=== PATIENT | female | born 1950 | race Caucasian/White ===

== ENCOUNTER 2019-03-07 04:52 | Inpatient (IN) ==
[2019-03-07] MEDS ORDERED: ONDANSETRON 4 MG/2 ML VIAL IV ONE (05:36)
[2019-03-07] MEDS ORDERED: MORPHINE 4 MG/1 ML VIAL IV STA (05:36)
[2019-03-07] MEDS ORDERED: FUROSEMIDE 40 MG/4 ML VIAL IV STA (05:36)
[2019-03-07 05:56] LABS: INR 0.9; PT Patient Result 10.2 SECS (9.6-12.2)
[2019-03-07 06:09] LABS: Basophils % 0.7 % (0.0-0.8); Eosinophils # 0.1 10*3/uL (0.0-0.87); Eosinophils % 1.5 % (0.00-10.9); Hematocrit 42.6 VOL% (35.7-47.0); Hemoglobin 12.7 GM/DL (12.0-16.0); Immature Granulocytes % 0.4 %; Immature Granulocytes Absolute 0.02 #; Lymphocytes # 0.7 10*3/uL (1.4-4.0); Lymphocytes % 13.6 % (21.3-54.2); Mean Corpuscular HGB Conc 29.8 GM/DL (32-36); Mean Corpuscular Volume 89.3 FL (87-102); Mean Platelet Volume 11.9 FL (9.6-12.0); Monocytes % 6.1 % (1.7-12.7); Neutrophils % 77.7 % (38.7-73.9); Platelet Count 138 T/CUMM (130-400); Red Blood Count 4.77 MC/CUMM (3.8-5.5); Red Cell Distribution Width 22.3 % (9.3-17.3); White Blood Count 5.4 T/CUMM (4-12)
[2019-03-07 06:12] LABS: Albumin 3.4 G/DL (3.4-5.0); Bilirubin,Total 0.8 MG/DL (0.2-1.0); Calcium 9.2 MG/DL (8.5-10.1); Osmolality,Calculated 291.6 MOS/KG (273-304); Total Protein 6.4 G/DL (6.4-8.3)
[2019-03-07] MEDS ORDERED: hydrALAZINE 20 MG/1 ML VIAL IV STA (06:32)
[2019-03-07] MEDS ORDERED: ONDANSETRON 4 MG/2 ML VIAL IV PRN (10:34)
[2019-03-07 12:22] LABS: Troponin I 0.082 NG/ML (0.00-0.045)
[2019-03-07] MEDS: LISINOPRIL 20 MG TABLET PO SCH (12:26)
[2019-03-07 15:38] LABS: Troponin I 0.085 NG/ML (0.00-0.045)
[2019-03-07] MEDS: TEMAZEPAM 15 MG CAPSULE PO PRN (21:53)
[2019-03-08 05:42] LABS: Basophils % 0.6 % (0.0-0.8); Eosinophils # 0.3 10*3/uL (0.0-0.87); Eosinophils % 8.2 % (0.00-10.9); Hematocrit 37.4 VOL% (35.7-47.0); Hemoglobin 11.2 GM/DL (12.0-16.0); Lymphocytes # 1.4 10*3/uL (1.4-4.0); Lymphocytes % 38.5 % (21.3-54.2); Mean Corpuscular HGB Conc 29.9 GM/DL (32-36); Monocytes % 11.9 % (1.7-12.7); Neutrophils % 40.8 % (38.7-73.9); Platelet Count 119 T/CUMM (130-400); Red Blood Count 4.25 MC/CUMM (3.8-5.5); Red Cell Distribution Width 22.4 % (9.3-17.3); White Blood Count 3.5 T/CUMM (4-12)
[2019-03-08 06:11] LABS: Hypochromasia 1+; Ovalocytes Slight; Platelet Estimate Decreased
[2019-03-08 06:13] LABS: Calcium 8.7 MG/DL (8.5-10.1); Osmolality,Calculated 287.7 MOS/KG (273-304); Risk Ratio 3.34; Thyroid Stimulating Hormone 2.64 uIU/ml (0.358-3.74)
[2019-03-08] MEDS: PANTOPRAZOLE 40 MG TABLET PO SCH (09:20)
[2019-03-08] MEDS: LISINOPRIL 20 MG TABLET PO SCH (09:20)
[2019-03-08] MEDS: hydrALAZINE 20 MG/1 ML VIAL IV PRN (09:20)
[2019-03-08] MEDS: POTASSIUM CHLORIDE 20 MEQ TABLET PO PRN ×5 (15:20→23:38)
[2019-03-08] MEDS ORDERED: hydroCHLOROthiazide 12.5 MG CAPSULE PO ONE (17:40)
[2019-03-08] MEDS: TEMAZEPAM 15 MG CAPSULE PO PRN (21:24)
[2019-03-09 06:13] LABS: Osmolality,Calculated 289.6 MOS/KG (273-304)
[2019-03-09 06:29] LABS: Basophils % 0.9 % (0.0-0.8); Eosinophils # 0.3 10*3/uL (0.0-0.87); Eosinophils % 7.2 % (0.00-10.9); Hematocrit 38.3 VOL% (35.7-47.0); Hemoglobin 11.5 GM/DL (12.0-16.0); Immature Granulocytes % 0.2 %; Immature Granulocytes Absolute 0.01 #; Lymphocytes # 1.4 10*3/uL (1.4-4.0); Lymphocytes % 30.3 % (21.3-54.2); Mean Corpuscular Volume 88.9 FL (87-102); Monocytes % 9.2 % (1.7-12.7); Neutrophils % 52.2 % (38.7-73.9); Red Blood Count 4.31 MC/CUMM (3.8-5.5); Red Cell Distribution Width 22.5 % (9.3-17.3); White Blood Count 4.5 T/CUMM (4-12)
[2019-03-09 06:36] LABS: Platelet Count 135 T/CUMM (130-400)
[2019-03-09 06:42] LABS: Hypochromasia 1+; Platelet Estimate Adequate
[2019-03-09] MEDS: FUROSEMIDE 40 MG/4 ML VIAL IV SCH (09:31)
[2019-03-09] MEDS: PANTOPRAZOLE 40 MG TABLET PO SCH (09:32)
[2019-03-09] MEDS: hydroCHLOROthiazide 12.5 MG CAPSULE PO SCH (09:32)
[2019-03-09] MEDS: LISINOPRIL 20 MG TABLET PO SCH (09:32)
[2019-03-09] MEDS: CARVEDILOL 6.25 MG TABLET PO SCH ×2 (12:57→16:35)
[2019-03-09] MEDS: ACETAMINOPHEN 325 MG TABLET PO PRN (22:35)
[2019-03-10] MEDS: hydrALAZINE 20 MG/1 ML VIAL IV PRN ×2 (00:45→23:58)
[2019-03-10] MEDS: FUROSEMIDE 40 MG/4 ML VIAL IV SCH (09:23)
[2019-03-10] MEDS: LISINOPRIL 20 MG TABLET PO SCH (09:24)
[2019-03-10] MEDS: CARVEDILOL 6.25 MG TABLET PO SCH ×2 (09:24→16:35)
[2019-03-10] MEDS: ACETAMINOPHEN 325 MG TABLET PO PRN (09:24)
[2019-03-10] MEDS: PANTOPRAZOLE 40 MG TABLET PO SCH (09:25)
[2019-03-10] MEDS: hydroCHLOROthiazide 12.5 MG CAPSULE PO SCH (09:25)
[2019-03-11] MEDS: FUROSEMIDE 40 MG/4 ML VIAL IV SCH (08:11)
[2019-03-11] MEDS: ACETAMINOPHEN 325 MG TABLET PO PRN (08:12)
[2019-03-11] MEDS: PANTOPRAZOLE 40 MG TABLET PO SCH (08:12)
[2019-03-11] MEDS: LISINOPRIL 20 MG TABLET PO SCH (08:12)
[2019-03-11] MEDS: CARVEDILOL 6.25 MG TABLET PO SCH (08:13)
[2019-03-11] MEDS: hydroCHLOROthiazide 12.5 MG CAPSULE PO SCH (08:13)
[2019-03-11] MEDS ORDERED: hydroCHLOROthiazide 12.5 MG CAPSULE PO ONE (09:19)
[2019-03-11] MEDS: CARVEDILOL 12.5 MG TABLET PO SCH (16:28)
[2019-03-12 05:04] LABS: Calcium 8.9 MG/DL (8.5-10.1); Osmolality,Calculated 285.3 MOS/KG (273-304)
[2019-03-12 07:54] VITALS: BP 159/97
[2019-03-12] MEDS: LISINOPRIL 20 MG TABLET PO SCH (08:49)
[2019-03-12] MEDS: CARVEDILOL 12.5 MG TABLET PO SCH (08:49)
[2019-03-12] MEDS: PANTOPRAZOLE 40 MG TABLET PO SCH (08:50)
[2019-03-12] MEDS: POTASSIUM CHLORIDE 20 MEQ TABLET PO PRN (08:50)
[2019-03-12] MEDS ORDERED: hydroCHLOROthiazide 25 MG TABLET PO SCH (09:00)
[2019-03-12] MEDS ORDERED: HEPARIN LOCK FLUSH 500 UNIT/5 ML SYRINGE IV ONE (11:20)
[2019-03-16 12:06] LABS: Metanephrine, Free < 0.20 nmol/L (<0.50)
[2019-03-17 11:56] LABS: Dopamine, Plasma 51 pg/mL; Epinephrine, Plasma 42 pg/mL; Norepinephrine, Plasma 601 pg/mL
== END 2019-03-12 12:00 | disposition home or self-care (01) | DRG 305 ==
LOC: N.ED 04:52 → N.EDINP 08:54 → N.TELES 10:16
PROVIDERS: ADMIT Internal Medicine; ATTEND Internal Medicine

== ENCOUNTER 2019-03-23 18:06 | Inpatient (IN) ==
[2019-03-23 20:47] LABS: Basophils % 0.3 % (0.0-0.8); Eosinophils % 0.1 % (0.00-10.9); Hematocrit 44.6 VOL% (35.7-47.0); Immature Granulocytes % 0.7 %; Lymphocytes # 0.8 10*3/uL (1.4-4.0); Lymphocytes % 5.8 % (21.3-54.2); Mean Corpuscular HGB Conc 31.4 GM/DL (32-36); Mean Corpuscular Volume 87.3 FL (87-102); Mean Platelet Volume 10.6 FL (9.6-12.0); Monocytes % 9.1 % (1.7-12.7); Platelet Count 150 T/CUMM (130-400); Red Blood Count 5.11 MC/CUMM (3.8-5.5); Red Cell Distribution Width 20.1 % (9.3-17.3); White Blood Count 13.5 T/CUMM (4-12)
[2019-03-23 21:03] LABS: Apearance,Urine CLOUDY (Clear); Bilirubin,Urine Small mg/dL (Negative); Blood, Urine Negative (Negative); Glucose,Urine (UA) Negative (Negative); Hyaline Casts,Urine 10 /LPF (0-3); Ketones,Urine Negative (Negative); Mucus,Urine Many /LPF (Occasional); Nitrite,Urine Negative (Negative); Protein,Urine >=500 MG/DL; RBC,Urine 4 /HPF (0-4); Squamous Epithelial Cell,Urine Occasional /HPF (0-10); Urine Color Yellow (Yellow); Urine Specific Gravity 1.029 (1.001-1.035); WBC,Urine 16 /HPF (0-6)
[2019-03-23 21:15] LABS: Alanine Aminotransferase 12 U/L (13-56); Albumin 3.3 G/DL (3.4-5.0); Alkaline Phosphatase 67 U/L (45-117); Aspartate Amino Transferase 15 U/L (0-37); Blood Urea Nitrogen 21 MG/DL (7-18); Calcium 9.6 MG/DL (8.5-10.1); Estimated Glom Filtration Rate 45 ML/MIN; Glucose 125 MG/DL (74-106); Osmolality,Calculated 276.8 MOS/KG (273-304); Total Protein 6.7 G/DL (6.4-8.3)
[2019-03-23] MEDS ORDERED: PIPERACILLIN/TAZOBACTAM 3,375 MG in SODIUM CHLORIDE 0.9% 100 ML IV STA ×2 (21:55→22:03)
[2019-03-24] MEDS ORDERED: TEMAZEPAM 15 MG CAPSULE PO PRN (02:29)
[2019-03-24] MEDS ORDERED: ACETAMINOPHEN 500 MG TABLET PO PRN (02:29)
[2019-03-24] MEDS ORDERED: ONDANSETRON 4 MG/2 ML VIAL IV PRN (02:29)
[2019-03-24] MEDS: SODIUM CHLORIDE 0.9% 1,000 ML IV SCH ×3 (02:49→21:06)
[2019-03-24] MEDS: HYDROmorphone 2 MG/1 ML VIAL IV PRN ×3 (02:50→14:18)
[2019-03-24] MEDS ORDERED: DOCUSATE SODIUM 100 MG CAPSULE PO PRN (04:20)
[2019-03-24 05:34] LABS: Basophils % 0.2 % (0.0-0.8); Eosinophils % 0.2 % (0.00-10.9); Hematocrit 40.6 VOL% (35.7-47.0); Hemoglobin 12.5 GM/DL (12.0-16.0); Immature Granulocytes Absolute 0.12 #; Lymphocytes # 0.8 10*3/uL (1.4-4.0); Lymphocytes % 6.7 % (21.3-54.2); Mean Corpuscular HGB Conc 30.8 GM/DL (32-36); Mean Corpuscular Volume 88.5 FL (87-102); Monocytes % 10.4 % (1.7-12.7); Neutrophils % 81.5 % (38.7-73.9); Platelet Count 125 T/CUMM (130-400); Red Blood Count 4.59 MC/CUMM (3.8-5.5); Red Cell Distribution Width 19.9 % (9.3-17.3); White Blood Count 12.2 T/CUMM (4-12)
[2019-03-24 05:56] LABS: Hypochromasia 1+; Platelet Estimate Adequate
[2019-03-24 05:58] LABS: Albumin 2.9 G/DL (3.4-5.0); Bilirubin,Total 1.1 MG/DL (0.2-1.0); Calcium 9.1 MG/DL (8.5-10.1); Osmolality,Calculated 283.5 MOS/KG (273-304); Total Protein 6.1 G/DL (6.4-8.3)
[2019-03-24] MEDS: PIPERACILLIN/TAZOBACTAM 3,375 MG in SODIUM CHLORIDE 0.9% 100 ML IV SCH ×3 (05:59→21:07)
[2019-03-24] MEDS: carvediloL 12.5 MG TABLET PO SCH ×2 (08:40→16:46)
[2019-03-24] MEDS: PANTOPRAZOLE 40 MG TABLET PO SCH (08:40)
[2019-03-24] MEDS ORDERED: LISINOPRIL 20 MG TABLET PO SCH (09:00)
[2019-03-24] MEDS ORDERED: fentaNYL 100 MCG/2 ML VIAL IV ONE (14:22)
[2019-03-24] MEDS ORDERED: DIAZEPAM 5 MG TABLET PO ONE (14:22)
[2019-03-24] MEDS ORDERED: MIDAZOLAM 2 MG/2 ML VIAL IV ONE (14:22)
[2019-03-24 14:30] LABS: PT Patient Result 10.7 SECS (9.6-12.2)
[2019-03-24] MEDS ORDERED: fentaNYL 100 MCG/2 ML VIAL ONE (14:41)
[2019-03-24] MEDS ORDERED: ONDANSETRON 4 MG/2 ML VIAL ONE (14:41)
[2019-03-24] MEDS ORDERED: MIDAZOLAM 2 MG/2 ML VIAL ONE (14:41)
[2019-03-24] MEDS ORDERED: ONDANSETRON 4 MG/2 ML VIAL IV ONE (14:49)
[2019-03-24] MEDS ORDERED: HYDROmorphone 2 MG/1 ML VIAL IV ONE (16:46)
[2019-03-24] MEDS ORDERED: HYDROmorphone 2 MG/1 ML VIAL IV PRN (16:56)
[2019-03-24] MEDS: ENOXAPARIN 40 MG/0.4 ML SYRINGE SUBCUT SCH (18:03)
[2019-03-25 04:56] LABS: Basophils % 0.2 % (0.0-0.8); Hematocrit 37.3 VOL% (35.7-47.0); Hemoglobin 11.3 GM/DL (12.0-16.0); Immature Granulocytes % 0.7 %; Immature Granulocytes Absolute 0.08 #; Lymphocytes # 0.7 10*3/uL (1.4-4.0); Mean Corpuscular HGB Conc 30.3 GM/DL (32-36); Mean Corpuscular Volume 92.6 FL (87-102); Mean Platelet Volume 11.2 FL (9.6-12.0); Monocytes % 8.1 % (1.7-12.7); Platelet Count 90 T/CUMM (130-400); Red Blood Count 4.03 MC/CUMM (3.8-5.5); Red Cell Distribution Width 19.9 % (9.3-17.3); White Blood Count 12.2 T/CUMM (4-12)
[2019-03-25 05:28] LABS: Albumin 2.5 G/DL (3.4-5.0); Bilirubin,Total 0.8 MG/DL (0.2-1.0); Calcium 8.3 MG/DL (8.5-10.1); Osmolality,Calculated 289.4 MOS/KG (273-304)
[2019-03-25 05:32] LABS: Lymphocytes 4 % (20-55); Segmented Neutrophils 88 % (50-85); Total Cells Counted 100
[2019-03-25 05:33] LABS: Anisocytosis 1+; Microcytosis 1+; Ovalocytes Few; Platelet Estimate Decreased
[2019-03-25] MEDS: PIPERACILLIN/TAZOBACTAM 3,375 MG in SODIUM CHLORIDE 0.9% 100 ML IV SCH ×3 (06:35→21:28)
[2019-03-25] MEDS ORDERED: SODIUM CHLORIDE 0.9% 1,000 ML IV ONE (08:15)
[2019-03-25] MEDS: PANTOPRAZOLE 40 MG TABLET PO SCH (08:59)
[2019-03-25] MEDS: carvediloL 12.5 MG TABLET PO SCH ×2 (09:02→17:45)
[2019-03-25] MEDS: SODIUM CHLOR 0.45% KCL 20 MEQ 20 MEQ/1,000 ML BAG IV SCH (10:47)
[2019-03-25] MEDS: ENOXAPARIN 40 MG/0.4 ML SYRINGE SUBCUT SCH (17:45)
[2019-03-25] MEDS: SODIUM CHLORIDE 0.9% 1,000 ML IV SCH (19:08)
[2019-03-25] MEDS: ACETAMINOPHEN 325 MG TABLET PO PRN (21:27)
[2019-03-26] MEDS: SODIUM CHLORIDE 0.9% 1,000 ML IV SCH ×2 (00:54→16:25)
[2019-03-26] MEDS: SODIUM CHLOR 0.45% KCL 20 MEQ 20 MEQ/1,000 ML BAG IV SCH ×2 (00:55→12:29)
[2019-03-26] MEDS: PIPERACILLIN/TAZOBACTAM 3,375 MG in SODIUM CHLORIDE 0.9% 100 ML IV SCH ×2 (05:17→15:55)
[2019-03-26 05:36] LABS: Basophils % 0.2 % (0.0-0.8); Eosinophils # 0.2 10*3/uL (0.0-0.87); Eosinophils % 1.9 % (0.00-10.9); Hematocrit 35.6 VOL% (35.7-47.0); Hemoglobin 10.7 GM/DL (12.0-16.0); Immature Granulocytes % 0.3 %; Immature Granulocytes Absolute 0.03 #; Lymphocytes # 0.8 10*3/uL (1.4-4.0); Lymphocytes % 8.3 % (21.3-54.2); Mean Corpuscular HGB Conc 30.1 GM/DL (32-36); Mean Platelet Volume 12.1 FL (9.6-12.0); Monocytes % 5.4 % (1.7-12.7); Neutrophils % 83.9 % (38.7-73.9); Platelet Count 95 T/CUMM (130-400); Red Blood Count 3.91 MC/CUMM (3.8-5.5); Red Cell Distribution Width 19.7 % (9.3-17.3); White Blood Count 9.2 T/CUMM (4-12)
[2019-03-26 06:02] LABS: Calcium 8.7 MG/DL (8.5-10.1); Osmolality,Calculated 291.3 MOS/KG (273-304)
[2019-03-26 07:03] LABS: Band Neutrophils 1 % (0-10); Eosinophils 1 % (0-10); Lymphocytes 11 % (20-55); Segmented Neutrophils 81 % (50-85); Total Cells Counted 100
[2019-03-26 07:04] LABS: Anisocytosis 1+; Microcytosis Slight; Platelet Estimate Decreased
[2019-03-26] MEDS: carvediloL 12.5 MG TABLET PO SCH ×3 (09:48→16:24)
[2019-03-26] MEDS: PANTOPRAZOLE 40 MG TABLET PO SCH (09:48)
[2019-03-26] MEDS: ACETAMINOPHEN 325 MG TABLET PO PRN (09:50)
[2019-03-26] MEDS ORDERED: LEVOFLOXACIN INJ 500 MG in PREMIX 1 EACH IV SCH (16:00)
[2019-03-27] MEDS: SODIUM CHLOR 0.45% KCL 20 MEQ 20 MEQ/1,000 ML BAG IV SCH (02:58)
[2019-03-27] MEDS: ACETAMINOPHEN 325 MG TABLET PO PRN (02:58)
[2019-03-27] MEDS: SODIUM CHLORIDE 0.9% 1,000 ML IV SCH (05:31)
[2019-03-27 05:54] LABS: Calcium 8.6 MG/DL (8.5-10.1); Osmolality,Calculated 286.4 MOS/KG (273-304)
[2019-03-27 06:04] LABS: Basophils % 0.3 % (0.0-0.8); Eosinophils # 0.2 10*3/uL (0.0-0.87); Eosinophils % 2.6 % (0.00-10.9); Hematocrit 35.6 VOL% (35.7-47.0); Hemoglobin 10.9 GM/DL (12.0-16.0); Immature Granulocytes % 0.6 %; Immature Granulocytes Absolute 0.04 #; Lymphocytes # 0.8 10*3/uL (1.4-4.0); Lymphocytes % 12.4 % (21.3-54.2); Mean Corpuscular HGB Conc 30.6 GM/DL (32-36); Mean Platelet Volume 11.2 FL (9.6-12.0); Monocytes % 5.1 % (1.7-12.7); Platelet Count 106 T/CUMM (130-400); Red Blood Count 3.91 MC/CUMM (3.8-5.5); White Blood Count 6.4 T/CUMM (4-12)
[2019-03-27] MEDS: carvediloL 12.5 MG TABLET PO SCH (08:25)
[2019-03-27] MEDS: PANTOPRAZOLE 40 MG TABLET PO SCH (08:25)
[2019-03-27 12:09] VITALS: BP 176/62
[2019-03-27] MEDS ORDERED: amLODIPine 10 MG TABLET PO ONE (12:56)
[2019-03-27] MEDS ORDERED: LEVOFLOXACIN 500 MG TABLET PO SCH (13:00)
[2019-03-28] MEDS ORDERED: amLODIPine 10 MG TABLET PO SCH (09:00)
== END 2019-03-27 15:25 | disposition home health service (06) | DRG 445 ==
LOC: N.ED 18:06 → N.EDINP 03-24 00:35 → N.3E 03-24 02:18
PROVIDERS: ADMIT Hospitalist; ATTEND Hospitalist

== ENCOUNTER 2019-04-25 06:23 | Inpatient (IN) ==
[2019-04-21 14:16] LABS: Basophils % 0.7 % (0.0-0.8); Eosinophils # 0.3 10*3/uL (0.0-0.87); Eosinophils % 5.5 % (0.00-10.9); Hematocrit 41.8 VOL% (35.7-47.0); Hemoglobin 12.9 GM/DL (12.0-16.0); Immature Granulocytes % 0.2 %; Immature Granulocytes Absolute 0.01 #; Lymphocytes # 1.5 10*3/uL (1.4-4.0); Lymphocytes % 25.6 % (21.3-54.2); Mean Corpuscular HGB Conc 30.9 GM/DL (32-36); Mean Corpuscular Volume 90.1 FL (87-102); Mean Platelet Volume 11.8 FL (9.6-12.0); Platelet Count 153 T/CUMM (130-400); Red Blood Count 4.64 MC/CUMM (3.8-5.5); Red Cell Distribution Width 16.7 % (9.3-17.3); White Blood Count 5.8 T/CUMM (4-12)
[2019-04-21 14:42] LABS: Albumin 3.2 G/DL (3.4-5.0); Bilirubin,Total 0.4 MG/DL (0.2-1.0); Calcium 9.1 MG/DL (8.5-10.1); Osmolality,Calculated 288.8 MOS/KG (273-304); Total Protein 6.7 G/DL (6.4-8.3)
[~2019-04-25 06:23] MED LIST: ceFAZolin 1,000 MG VIAL ONE; ceFAZolin 1,000 MG in SYRINGE 1 EACH IV ONE
[2019-04-25] MEDS ORDERED: LACTATED RINGERS 1,000 ML IV SCH (08:20)
[2019-04-25] MEDS ORDERED: FAMOTIDINE 20 MG TABLET PO ONE (08:36)
[2019-04-25] MEDS ORDERED: DIAZEPAM 5 MG TABLET PO ONE (08:36)
[2019-04-25] MEDS ORDERED: FAMOTIDINE 20 MG TABLET ONE (08:58)
[2019-04-25] MEDS ORDERED: DIAZEPAM 5 MG TABLET ONE (08:58)
[2019-04-25] MEDS ORDERED: ONDANSETRON 4 MG/2 ML VIAL ONE ×3 (10:00→13:07)
[2019-04-25] MEDS ORDERED: LIDOCAINE 2% 5 ML VIAL ONE ×2 (10:00→13:04)
[2019-04-25] MEDS ORDERED: PHENYLEPHRINE 1 MG/10 ML SYRINGE IV ONE (10:00)
[2019-04-25] MEDS ORDERED: SUCCINYLCHOLINE 200 MG/10 ML VIAL ONE (10:00)
[2019-04-25] MEDS ORDERED: GLYCOPYRROLATE 0.4 MG/2 ML VIAL ONE ×2 (10:00→13:05)
[2019-04-25] MEDS ORDERED: PROPOFOL 200 MG/20 ML VIAL IV ONE ×2 (10:00→13:04)
[2019-04-25] MEDS ORDERED: TISSUE ADHESIVE 1 EACH APPLICATOR TOP ONE (10:02)
[2019-04-25] MEDS ORDERED: GLUCAGON 1 MG VIAL ONE (11:45)
[2019-04-25] MEDS ORDERED: MIDAZOLAM 2 MG/2 ML VIAL ONE (13:04)
[2019-04-25] MEDS ORDERED: SEVOFLURANE 1 UNIT/15 MINUTE INH ONE (13:04)
[2019-04-25] MEDS ORDERED: PHENYLEPHRINE DRIP 20 MG/250 ML PREMIX IV ONE (13:04)
[2019-04-25] MEDS ORDERED: fentaNYL 100 MCG/2 ML VIAL ONE (13:04)
[2019-04-25] MEDS ORDERED: LACTATED RINGERS 1,000 ML IV ONE (13:05)
[2019-04-25] MEDS ORDERED: ePHEDrine 50 MG/ML AMP ONE (13:05)
[2019-04-25] MEDS ORDERED: ROCURONIUM 100 MG/10 ML VIAL IV ONE (13:05)
[2019-04-25] MEDS ORDERED: NEOSTIGMINE 10 MG/10 ML VIAL ONE (13:05)
[2019-04-25] MEDS ORDERED: MEPERIDINE 25 MG/1 ML VIAL ONE (13:07)
[2019-04-25] MEDS ORDERED: ONDANSETRON 4 MG/2 ML VIAL IV PRN (13:11)
[2019-04-25] MEDS ORDERED: MEPERIDINE 25 MG/1 ML VIAL IV PRN (13:11)
[2019-04-25] MEDS ORDERED: FUROSEMIDE 40 MG TABLET PO PRN (14:24)
[2019-04-25] MEDS ORDERED: PROMETHAZINE 25 MG/1 ML VIAL IM PRN (14:24)
[2019-04-25] MEDS ORDERED: TEMAZEPAM 15 MG CAPSULE PO PRN (14:24)
[2019-04-25] MEDS ORDERED: ACETAMINOPHEN 325 MG TABLET PO PRN (14:24)
[2019-04-25 15:09] LABS: Basophils # 0.1 10*3/uL (0.0-0.2); Basophils % 0.5 % (0.0-0.8); Eosinophils # 0.2 10*3/uL (0.0-0.87); Eosinophils % 1.4 % (0.00-10.9); Hematocrit 41.3 VOL% (35.7-47.0); Hemoglobin 12.5 GM/DL (12.0-16.0); Immature Granulocytes % 0.3 %; Immature Granulocytes Absolute 0.04 #; Lymphocytes # 0.9 10*3/uL (1.4-4.0); Lymphocytes % 7.5 % (21.3-54.2); Mean Corpuscular HGB Conc 30.3 GM/DL (32-36); Mean Corpuscular Volume 91.6 FL (87-102); Mean Platelet Volume 12.3 FL (9.6-12.0); Monocytes % 3.1 % (1.7-12.7); Neutrophils % 87.2 % (38.7-73.9); Platelet Count 164 T/CUMM (130-400); Red Blood Count 4.51 MC/CUMM (3.8-5.5); Red Cell Distribution Width 16.9 % (9.3-17.3); White Blood Count 12.3 T/CUMM (4-12)
[2019-04-25] MEDS: ONDANSETRON 4 MG/2 ML VIAL IV PRN (16:10)
[2019-04-25] MEDS: HYDROmorphone 2 MG/1 ML VIAL IV PRN ×2 (16:11→19:56)
[2019-04-25 18:00] LABS: Hematocrit 43.6 VOL% (35.7-47.0); Hemoglobin 13.3 GM/DL (12.0-16.0)
[2019-04-25] MEDS: LACTATED RINGERS 1,000 ML IV SCH (19:56)
[2019-04-25] MEDS: PANTOPRAZOLE 40 MG TABLET PO SCH (21:24)
[2019-04-26] MEDS: HYDROmorphone 2 MG/1 ML VIAL IV PRN ×2 (01:11→13:56)
[2019-04-26 05:21] LABS: Basophils % 0.3 % (0.0-0.8); Eosinophils % 0.1 % (0.00-10.9); Hemoglobin 12.1 GM/DL (12.0-16.0); Immature Granulocytes % 0.6 %; Immature Granulocytes Absolute 0.05 #; Lymphocytes # 0.7 10*3/uL (1.4-4.0); Lymphocytes % 7.5 % (21.3-54.2); Mean Corpuscular HGB Conc 30.3 GM/DL (32-36); Mean Corpuscular Volume 92.2 FL (87-102); Mean Platelet Volume 11.3 FL (9.6-12.0); Monocytes % 5.4 % (1.7-12.7); Neutrophils % 86.1 % (38.7-73.9); Platelet Count 108 T/CUMM (130-400); Red Blood Count 4.34 MC/CUMM (3.8-5.5); Red Cell Distribution Width 16.8 % (9.3-17.3)
[2019-04-26 05:38] LABS: INR 0.9; PT Patient Result 9.8 SECS (9.6-12.2)
[2019-04-26 05:40] LABS: Albumin 2.9 G/DL (3.4-5.0); Bilirubin,Total 0.8 MG/DL (0.2-1.0); Calcium 8.8 MG/DL (8.5-10.1); Osmolality,Calculated 290.1 MOS/KG (273-304); Total Protein 6.2 G/DL (6.4-8.3)
[2019-04-26] MEDS ORDERED: LACTATED RINGERS 1,000 ML IV SCH (08:00)
[2019-04-26] MEDS ORDERED: INDOMETHACIN SUPP 50 MG SUPP RECTAL ONE ×3 (08:00→10:30)
[2019-04-26] MEDS ORDERED: CIPROFLOXACIN INJ 400 MG in PREMIX 1 EACH IV ONE (08:54)
[2019-04-26] MEDS ORDERED: LISINOPRIL 20 MG TABLET PO SCH (09:00)
[2019-04-26] MEDS: LACTATED RINGERS 1,000 ML IV SCH ×2 (10:15→21:03)
[2019-04-26] MEDS ORDERED: MIDAZOLAM 2 MG/2 ML VIAL ONE (10:59)
[2019-04-26] MEDS ORDERED: fentaNYL 100 MCG/2 ML VIAL ONE (10:59)
[2019-04-26] MEDS ORDERED: BENZONATATE 100 MG CAPSULE PO PRN (13:07)
[2019-04-26] MEDS: carvediloL 12.5 MG TABLET PO SCH (13:56)
[2019-04-26] MEDS: hydroCHLOROthiazide 25 MG TABLET PO SCH (13:56)
[2019-04-26] MEDS: PANTOPRAZOLE 40 MG TABLET PO SCH (21:04)
[2019-04-27 05:36] LABS: Basophils % 0.3 % (0.0-0.8); Eosinophils # 0.2 10*3/uL (0.0-0.87); Eosinophils % 2.6 % (0.00-10.9); Hematocrit 35.5 VOL% (35.7-47.0); Hemoglobin 10.7 GM/DL (12.0-16.0); Immature Granulocytes % 0.3 %; Immature Granulocytes Absolute 0.02 #; Lymphocytes # 0.7 10*3/uL (1.4-4.0); Lymphocytes % 10.7 % (21.3-54.2); Mean Corpuscular HGB Conc 30.1 GM/DL (32-36); Mean Corpuscular Volume 93.7 FL (87-102); Mean Platelet Volume 12.1 FL (9.6-12.0); Monocytes % 5.5 % (1.7-12.7); Neutrophils % 80.6 % (38.7-73.9); Platelet Count 101 T/CUMM (130-400); Red Blood Count 3.79 MC/CUMM (3.8-5.5); Red Cell Distribution Width 16.5 % (9.3-17.3); White Blood Count 6.6 T/CUMM (4-12)
[2019-04-27 06:02] LABS: Albumin 2.4 G/DL (3.4-5.0); Bilirubin,Total 1.2 MG/DL (0.2-1.0); Calcium 8.2 MG/DL (8.5-10.1); Osmolality,Calculated 294.7 MOS/KG (273-304); Total Protein 5.4 G/DL (6.4-8.3)
[2019-04-27] MEDS: LACTATED RINGERS 1,000 ML IV SCH ×5 (07:37→23:55)
[2019-04-27] MEDS: hydroCHLOROthiazide 25 MG TABLET PO SCH (09:44)
[2019-04-27] MEDS: carvediloL 12.5 MG TABLET PO SCH (09:44)
[2019-04-27 14:58] LABS: Basophils % 0.3 % (0.0-0.8); Eosinophils # 0.1 10*3/uL (0.0-0.87); Eosinophils % 1.6 % (0.00-10.9); Hematocrit 36.8 VOL% (35.7-47.0); Hemoglobin 11.2 GM/DL (12.0-16.0); Immature Granulocytes % 0.3 %; Immature Granulocytes Absolute 0.02 #; Lymphocytes # 0.5 10*3/uL (1.4-4.0); Lymphocytes % 7.1 % (21.3-54.2); Mean Corpuscular HGB Conc 30.4 GM/DL (32-36); Mean Corpuscular Volume 92.7 FL (87-102); Mean Platelet Volume 11.6 FL (9.6-12.0); Monocytes % 5.2 % (1.7-12.7); Neutrophils % 85.5 % (38.7-73.9); Platelet Count 104 T/CUMM (130-400); Red Blood Count 3.97 MC/CUMM (3.8-5.5); Red Cell Distribution Width 16.4 % (9.3-17.3); White Blood Count 6.9 T/CUMM (4-12)
[2019-04-27 15:16] LABS: Albumin 2.5 G/DL (3.4-5.0); Calcium 8.6 MG/DL (8.5-10.1); Osmolality,Calculated 288.3 MOS/KG (273-304)
[2019-04-27] MEDS ORDERED: ALUMINUM/MAGNES/SIMETH MAX STR 30 ML UDCUP PO PRN (16:01)
[2019-04-27 16:06] LABS: Hypochromasia 1+; Microcytosis 1+; Platelet Estimate Adequate
[2019-04-27] MEDS: PANTOPRAZOLE 40 MG TABLET PO SCH (20:49)
[2019-04-27 22:12] LABS: Apearance,Urine Slightly Hazy (Clear); Bacteria,Urine Moderate /HPF (Few); Bilirubin,Urine Negative (Negative); Blood, Urine Negative (Negative); Glucose,Urine (UA) Negative (Negative); Ketones,Urine Negative (Negative); Mucus,Urine Occasional /LPF (Occasional); Nitrite,Urine Negative (Negative); Protein,Urine 30 MG/DL; RBC,Urine 2 /HPF (0-4); Squamous Epithelial Cell,Urine Occasional /HPF (0-10); Urine Color Yellow (Yellow); Urine Specific Gravity 1.013 (1.001-1.035); Urine Urobilinogen < 2.0 EU/DL (0.2-1.0); WBC,Urine 2 /HPF (0-6)
[2019-04-28] MEDS: ONDANSETRON 4 MG/2 ML VIAL IV PRN (00:56)
[2019-04-28] MEDS: LACTATED RINGERS 1,000 ML IV SCH ×3 (02:14→15:55)
[2019-04-28] MEDS ORDERED: POLYETHYLENE GLYCOL POWDER 17 GM PACK PO ONE (07:27)
[2019-04-28 08:11] LABS: Basophils % 0.4 % (0.0-0.8); Eosinophils # 0.1 10*3/uL (0.0-0.87); Eosinophils % 0.7 % (0.00-10.9); Hematocrit 34.5 VOL% (35.7-47.0); Hemoglobin 10.6 GM/DL (12.0-16.0); Immature Granulocytes % 0.6 %; Immature Granulocytes Absolute 0.05 #; Lymphocytes # 0.8 10*3/uL (1.4-4.0); Lymphocytes % 9.5 % (21.3-54.2); Mean Corpuscular HGB Conc 30.7 GM/DL (32-36); Mean Corpuscular Volume 91.5 FL (87-102); Mean Platelet Volume 12.7 FL (9.6-12.0); Monocytes % 4.9 % (1.7-12.7); Neutrophils % 83.9 % (38.7-73.9); Platelet Count 106 T/CUMM (130-400); Red Blood Count 3.77 MC/CUMM (3.8-5.5); Red Cell Distribution Width 16.3 % (9.3-17.3); White Blood Count 8.4 T/CUMM (4-12)
[2019-04-28 08:26] LABS: Calcium 8.6 MG/DL (8.5-10.1); Osmolality,Calculated 285.1 MOS/KG (273-304)
[2019-04-28] MEDS: carvediloL 12.5 MG TABLET PO SCH (08:41)
[2019-04-28] MEDS: hydroCHLOROthiazide 25 MG TABLET PO SCH (08:41)
[2019-04-28] MEDS: AMOXICILLIN/CLAV 500 MG TABLET PO SCH ×3 (08:41→23:45)
[2019-04-28] MEDS: PANTOPRAZOLE 40 MG TABLET PO SCH (20:48)
[2019-04-29 05:27] LABS: Basophils % 0.3 % (0.0-0.8); Eosinophils # 0.2 10*3/uL (0.0-0.87); Eosinophils % 2.4 % (0.00-10.9); Hematocrit 34.5 VOL% (35.7-47.0); Hemoglobin 10.7 GM/DL (12.0-16.0); Immature Granulocytes % 0.3 %; Immature Granulocytes Absolute 0.02 #; Lymphocytes # 0.8 10*3/uL (1.4-4.0); Lymphocytes % 10.8 % (21.3-54.2); Mean Corpuscular Volume 91.3 FL (87-102); Mean Platelet Volume 11.9 FL (9.6-12.0); Monocytes % 4.9 % (1.7-12.7); Neutrophils % 81.3 % (38.7-73.9); Platelet Count 125 T/CUMM (130-400); Red Blood Count 3.78 MC/CUMM (3.8-5.5); Red Cell Distribution Width 15.9 % (9.3-17.3); White Blood Count 7.5 T/CUMM (4-12)
[2019-04-29 05:51] LABS: Calcium 9.1 MG/DL (8.5-10.1); Osmolality,Calculated 279.4 MOS/KG (273-304)
[2019-04-29] MEDS: carvediloL 12.5 MG TABLET PO SCH (09:03)
[2019-04-29] MEDS: AMOXICILLIN/CLAV 500 MG TABLET PO SCH ×2 (09:03→15:09)
[2019-04-29] MEDS: hydroCHLOROthiazide 25 MG TABLET PO SCH (09:03)
[2019-04-29 11:44] VITALS: BP 134/62
== END 2019-04-29 15:46 | disposition home or self-care (01) | DRG 418 ==
LOC: N.OR 06:23 → N.SDSINP 06:24 → N.3E 14:18
PROVIDERS: ADMIT Student in an Organized Health Care Education/Training Program; ATTEND Student in an Organized Health Care Education/Training Program
PROC: LAPCHOL (2019-04-25 09:18)
PROC: ERCPWSP (ICD-10-PCS; 2019-04-26 09:05)

== ENCOUNTER 2020-04-08 08:24 | Observation (INO) ==
[2020-04-08] MEDS ORDERED: ONDANSETRON 4 MG/2 ML VIAL IV STA (09:01)
[2020-04-08] MEDS ORDERED: HYDROmorphone 2 MG/1 ML VIAL IV STA (09:01)
[2020-04-08 09:23] LABS: Basophils % 0.5 % (0.0-0.8); Eosinophils # 0.5 10*3/uL (0.0-0.87); Hematocrit 45.8 VOL% (35.7-47.0); Hemoglobin 15.4 GM/DL (12.0-16.0); Immature Granulocytes % 0.3 %; Immature Granulocytes Absolute 0.02 #; Lymphocytes # 0.5 10*3/uL (1.4-4.0); Mean Corpuscular HGB Conc 33.6 GM/DL (32-36); Mean Corpuscular Volume 95.4 FL (87-102); Mean Platelet Volume 10.2 FL (9.6-12.0); Monocytes % 6.1 % (1.7-12.7); Neutrophils % 80.1 % (38.7-73.9); Platelet Count 122 T/CUMM (130-400); Red Cell Distribution Width 15.1 % (9.3-17.3); White Blood Count 7.5 T/CUMM (4-12)
[2020-04-08 09:59] LABS: Calcium 9.5 MG/DL (8.5-10.1); Osmolality,Calculated 277.7 MOS/KG (273-304)
[2020-04-08] MEDS ORDERED: DEXTROSE 50% 25 GM/50 ML VIAL IV PRN (11:07)
[2020-04-08] MEDS ORDERED: GLUCAGON 1 MG VIAL IM PRN (11:07)
[2020-04-08] MEDS ORDERED: ACETAMINOPHEN 325 MG TABLET PO PRN (11:07)
[2020-04-08] MEDS ORDERED: ONDANSETRON 4 MG/2 ML VIAL IV PRN (11:07)
[2020-04-08] MEDS: LIDOCAINE 5% PATCH TRANSDERM SCH (14:13)
[2020-04-08] MEDS: MORPHINE 4 MG/1 ML VIAL IV PRN (21:25)
[2020-04-09] MEDS: MORPHINE 4 MG/1 ML VIAL IV PRN ×2 (01:39→16:46)
[2020-04-09 06:25] LABS: Basophils % 0.5 % (0.0-0.8); Eosinophils # 0.3 10*3/uL (0.0-0.87); Eosinophils % 5.7 % (0.00-10.9); Hemoglobin 14.8 GM/DL (12.0-16.0); Immature Granulocytes % 0.2 %; Immature Granulocytes Absolute 0.01 #; Lymphocytes # 0.5 10*3/uL (1.4-4.0); Lymphocytes % 8.3 % (21.3-54.2); Mean Corpuscular HGB Conc 32.9 GM/DL (32-36); Mean Platelet Volume 11.2 FL (9.6-12.0); Monocytes % 9.4 % (1.7-12.7); Neutrophils % 75.9 % (38.7-73.9); Red Blood Count 4.59 MC/CUMM (3.8-5.5); Red Cell Distribution Width 15.2 % (9.3-17.3); White Blood Count 5.7 T/CUMM (4-12)
[2020-04-09 06:26] LABS: Platelet Count 97 T/CUMM (130-400)
[2020-04-09 06:45] LABS: Calcium 9.7 MG/DL (8.5-10.1); Osmolality,Calculated 279.5 MOS/KG (273-304)
[2020-04-09 07:22] LABS: Anisocytosis 2+; Macrocytosis 1+; Platelet Estimate Decreased
[2020-04-09] MEDS: ALUMINUM/MAGNES/SIMETH MAX STR 30 ML UDCUP PO PRN ×2 (11:53→21:31)
[2020-04-09] MEDS: LIDOCAINE 5% PATCH TRANSDERM SCH (11:53)
[2020-04-10] MEDS ORDERED: FAMOTIDINE 20 MG TABLET PO ONE (03:13)
[2020-04-10 05:51] LABS: Basophils % 0.5 % (0.0-0.8); Eosinophils # 0.3 10*3/uL (0.0-0.87); Eosinophils % 4.9 % (0.00-10.9); Hematocrit 43.4 VOL% (35.7-47.0); Hemoglobin 14.3 GM/DL (12.0-16.0); Immature Granulocytes % 0.5 %; Immature Granulocytes Absolute 0.03 #; Lymphocytes # 0.5 10*3/uL (1.4-4.0); Lymphocytes % 8.8 % (21.3-54.2); Mean Corpuscular HGB Conc 32.9 GM/DL (32-36); Mean Corpuscular Volume 96.9 FL (87-102); Mean Platelet Volume 11.1 FL (9.6-12.0); Monocytes % 10.5 % (1.7-12.7); Neutrophils % 74.8 % (38.7-73.9); Platelet Count 112 T/CUMM (130-400); Red Blood Count 4.48 MC/CUMM (3.8-5.5); Red Cell Distribution Width 15.1 % (9.3-17.3); White Blood Count 5.6 T/CUMM (4-12)
[2020-04-10 06:12] LABS: Calcium 9.6 MG/DL (8.5-10.1); Osmolality,Calculated 275.8 MOS/KG (273-304)
[2020-04-10 06:17] LABS: Platelet Estimate Adequate
[2020-04-10 06:18] LABS: Anisocytosis 1+; Macrocytosis 1+
[2020-04-10] MEDS: LIDOCAINE 5% PATCH TRANSDERM SCH (09:44)
[2020-04-10] MEDS ORDERED: ACETAMINOPHEN 500 MG TABLET PO ONE (10:00)
[2020-04-10] MEDS ORDERED: LIDOCAINE 1% 20 ML VIAL ONE (13:35)
[2020-04-10] MEDS ORDERED: TISSUE ADHESIVE 1 EACH APPLICATOR TOP ONE (13:35)
[2020-04-10] MEDS ORDERED: DEXAMETHASONE 10 MG/1 ML VIAL ONE (13:38)
[2020-04-10] MEDS ORDERED: LIDOCAINE 2% 5 ML VIAL ONE (14:43)
[2020-04-10] MEDS ORDERED: propofoL 200 MG/20 ML VIAL IV ONE (14:43)
[2020-04-10] MEDS ORDERED: MIDAZOLAM 2 MG/2 ML VIAL ONE (14:44)
[2020-04-10] MEDS ORDERED: fentaNYL 100 MCG/2 ML VIAL ONE (14:44)
[2020-04-10] MEDS ORDERED: ceFAZolin 1,000 MG VIAL ONE (14:59)
[2020-04-10] MEDS ORDERED: ceFAZolin 2,000 MG in PREMIX 1 EACH IV SCH (16:00)
[2020-04-10 16:29] VITALS: BP 112/60
== END 2020-04-10 18:10 | disposition home or self-care (01) ==
LOC: N.ED 08:24 → N.EDINP 08:24 → SUATTDRO 11:04 → N.3E 11:50
PROVIDERS: ADMIT Internal Medicine; ATTEND Internal Medicine Geriatric Medicine

== ENCOUNTER 2022-02-21 12:37 | Inpatient (IN) ==
[2022-02-21] MEDS ORDERED: methylPREDNISolone SOD SUC 125 MG/2 ML VIAL IV STA (13:04)
[2022-02-21] MEDS ORDERED: cefTRIAXone 1,000 MG in SODIUM CHLORIDE 0.9% 100 ML IV STA (13:04)
[2022-02-21 13:30] LABS: Basophils % 0.3 % (0.0-0.8); Eosinophils # 0.2 10*3/uL (0.0-0.87); Eosinophils % 3.1 % (0.00-10.9); Hematocrit 39.7 VOL% (35.7-47.0); Hemoglobin 12.4 GM/DL (12.0-16.0); Immature Granulocytes Absolute 0.07 #; Lymphocytes # 0.6 10*3/uL (1.4-4.0); Lymphocytes % 8.8 % (21.3-54.2); Mean Corpuscular HGB Conc 31.2 GM/DL (32-36); Mean Corpuscular Volume 96.8 FL (87-102); Mean Platelet Volume 10.9 FL (9.6-12.0); Monocytes # 0.5 10*3/uL (0.11-0.8); Monocytes % 6.5 % (1.7-12.7); Neutrophils % 80.3 % (38.7-73.9); Platelet Count 200 T/CUMM (130-400); Red Cell Distribution Width 14.6 % (9.3-17.3); White Blood Count 7.1 T/CUMM (4-12)
[2022-02-21] MEDS ORDERED: ALBUTEROL NEB SOLN 5 MG/ML 20 ML/BOTTLE CONT NEB SCH (13:30)
[2022-02-21 13:41] LABS: Arterial Base Excess iSTAT 8 MMOL/L (-2.5-2.5); Arterial Bicarbonate iSTAT 35.6 MMOL/L (20-26); Arterial O2 Saturation iSTAT 91 % (95-100); Arterial PCO2 iSTAT 65 MM HG (35-48); Arterial PO2 iSTAT 68 MM HG (80-95); Arterial Total CO2 iSTAT 38 MMO/L (23-27); Arterial pH iSTAT 7.347 (7.35-7.45)
[2022-02-21 13:51] LABS: Albumin 2.5 G/DL (3.4-5.0); Bilirubin,Total 0.4 MG/DL (0.20-1.00); Calcium 9.3 MG/DL (8.5-10.1); Osmolality,Calculated 291.7 MOS/KG (273-304); Potassium 3.7 MMOL/L (3.5-5.1); Total Protein 6.1 G/DL (6.4-8.2)
[2022-02-21] MEDS ORDERED: LACTULOSE 20 GM/30 ML UDCUP PO PRN (15:15)
[2022-02-21] MEDS ORDERED: ALUMINUM/MAGNES/SIMETH MAX STR 30 ML UDCUP PO PRN (15:15)
[2022-02-21] MEDS ORDERED: DOCUSATE SODIUM 100 MG CAPSULE PO PRN (15:15)
[2022-02-21] MEDS ORDERED: ACETAMINOPHEN 325 MG TABLET PO PRN (15:15)
[2022-02-21] MEDS ORDERED: FUROSEMIDE 40 MG/4 ML VIAL IV ONE (15:15)
[2022-02-21] MEDS ORDERED: ONDANSETRON 4 MG/2 ML VIAL IV PRN (15:15)
[2022-02-21] MEDS: AZITHROMYCIN INJ 500 MG in SODIUM CHLORIDE 0.9% 250 ML IV SCH (16:00)
[2022-02-21] MEDS: ALBUTEROL/IPRATROPIUM 3 ML NEB RESP TX SCH (19:30)
[2022-02-22] MEDS: ALBUTEROL/IPRATROPIUM 3 ML NEB RESP TX SCH ×4 (00:53→19:18)
[2022-02-22] MEDS ORDERED: methylPREDNISolone SOD SUC 40 MG/1 ML VIAL IV SCH (01:00)
[2022-02-22 05:07] LABS: Basophils % 0.3 % (0.0-0.8); Eosinophils # 0.1 10*3/uL (0.0-0.87); Eosinophils % 0.9 % (0.00-10.9); Hematocrit 41.2 VOL% (35.7-47.0); Hemoglobin 12.6 GM/DL (12.0-16.0); Immature Granulocytes % 1.3 %; Lymphocytes # 0.5 10*3/uL (1.4-4.0); Lymphocytes % 5.8 % (21.3-54.2); Mean Corpuscular HGB Conc 30.6 GM/DL (32-36); Monocytes # 0.1 10*3/uL (0.11-0.8); Monocytes % 1.6 % (1.7-12.7); Neutrophils % 90.1 % (38.7-73.9); Platelet Count 200 T/CUMM (130-400); Red Blood Count 4.16 MC/CUMM (3.8-5.5); Red Cell Distribution Width 14.5 % (9.3-17.3); White Blood Count 7.7 T/CUMM (4-12)
[2022-02-22 05:38] LABS: Albumin 2.5 G/DL (3.4-5.0); Bilirubin,Total 0.4 MG/DL (0.20-1.00); Calcium 9.7 MG/DL (8.5-10.1); Osmolality,Calculated 289.5 MOS/KG (273-304); Potassium 4.2 MMOL/L (3.5-5.1); Total Protein 6.9 G/DL (6.4-8.2); VLDL Cholesterol 21.2 MG/DL
[2022-02-22 06:30] LABS: Arterial Base Excess iSTAT 8 MMOL/L (-2.5-2.5); Arterial Bicarbonate iSTAT 38.2 MMOL/L (20-26); Arterial O2 Saturation iSTAT 92 % (95-100); Arterial PCO2 iSTAT 80 MM HG (35-48); Arterial PO2 iSTAT 74 MM HG (80-95); Arterial Total CO2 iSTAT 41 MMO/L (23-27); Arterial pH iSTAT 7.289 (7.35-7.45)
[2022-02-22] MEDS: PANTOPRAZOLE 40 MG TABLET PO SCH (08:17)
[2022-02-22] MEDS: methylPREDNISolone SOD SUC 40 MG/1 ML VIAL IV SCH ×2 (08:17→15:04)
[2022-02-22] MEDS: carvediloL 12.5 MG TABLET PO SCH ×2 (08:18→16:06)
[2022-02-22] MEDS: APIXABAN 5 MG TABLET PO SCH (08:19)
[2022-02-22] MEDS ORDERED: lisinopriL 20 MG TABLET PO SCH (09:00)
[2022-02-22] MEDS ORDERED: hydroCHLOROthiazide 25 MG TABLET PO SCH (09:00)
[2022-02-22] MEDS ORDERED: ALBUTEROL 0.63 MG/3 ML NEB RESP TX PRN (10:28)
[2022-02-22 10:43] LABS: INR 1.1; PT Patient Result 11.7 SECS (10.1-12.1)
[2022-02-22] MEDS ORDERED: FUROSEMIDE 40 MG/4 ML VIAL IV ONE (11:03)
[2022-02-22] MEDS: cefTRIAXone 1,000 MG in SODIUM CHLORIDE 0.9% 100 ML IV SCH (14:49)
[2022-02-22] MEDS: AZITHROMYCIN INJ 500 MG in SODIUM CHLORIDE 0.9% 250 ML IV SCH (14:50)
[2022-02-23] MEDS: methylPREDNISolone SOD SUC 40 MG/1 ML VIAL IV SCH ×4 (00:03→21:32)
[2022-02-23 04:31] LABS: Arterial Base Excess iSTAT 9 MMOL/L (-2.5-2.5); Arterial Bicarbonate iSTAT 40.5 MMOL/L (20-26); Arterial O2 Saturation iSTAT 92 % (95-100); Arterial PCO2 iSTAT 92 MM HG (35-48); Arterial PO2 iSTAT 79 MM HG (80-95); Arterial Total CO2 iSTAT 43 MMO/L (23-27); Arterial pH iSTAT 7.252 (7.35-7.45)
[2022-02-23 05:59] LABS: Basophils % 0.2 % (0.0-0.8); Hematocrit 41.9 VOL% (35.7-47.0); Hemoglobin 12.7 GM/DL (12.0-16.0); Immature Granulocytes % 1.7 %; Immature Granulocytes Absolute 0.14 #; Lymphocytes # 0.4 10*3/uL (1.4-4.0); Mean Corpuscular HGB Conc 30.3 GM/DL (32-36); Mean Corpuscular Volume 101.2 FL (87-102); Mean Platelet Volume 10.3 FL (9.6-12.0); Monocytes # 0.1 10*3/uL (0.11-0.8); Monocytes % 1.3 % (1.7-12.7); Neutrophils % 91.8 % (38.7-73.9); Platelet Count 234 T/CUMM (130-400); Red Blood Count 4.14 MC/CUMM (3.8-5.5); Red Cell Distribution Width 14.5 % (9.3-17.3); White Blood Count 8.5 T/CUMM (4-12)
[2022-02-23 06:17] LABS: Lymphocytes 4 % (20-55); Platelet Estimate Adequate; Total Cells Counted 100
[2022-02-23 06:24] LABS: Calcium 9.9 MG/DL (8.5-10.1); Osmolality,Calculated 292.4 MOS/KG (273-304); Potassium 4.8 MMOL/L (3.5-5.1)
[2022-02-23] MEDS: ALBUTEROL/IPRATROPIUM 3 ML NEB RESP TX SCH ×4 (07:05→19:20)
[2022-02-23] MEDS: carvediloL 12.5 MG TABLET PO SCH ×2 (08:14→17:15)
[2022-02-23] MEDS: PANTOPRAZOLE 40 MG TABLET PO SCH (08:14)
[2022-02-23] MEDS: APIXABAN 5 MG TABLET PO SCH ×3 (08:24→21:32)
[2022-02-23 08:44] LABS: Arterial Base Excess iSTAT 9 MMOL/L (-2.5-2.5); Arterial Bicarbonate iSTAT 38.3 MMOL/L (20-26); Arterial O2 Saturation iSTAT 89 % (95-100); Arterial PCO2 iSTAT 72 MM HG (35-48); Arterial PO2 iSTAT 64 MM HG (80-95); Arterial Total CO2 iSTAT 40 MMO/L (23-27); Arterial pH iSTAT 7.335 (7.35-7.45)
[2022-02-23] MEDS ORDERED: FUROSEMIDE 40 MG/4 ML VIAL IV ONE (09:19)
[2022-02-23] MEDS: cefTRIAXone 1,000 MG in SODIUM CHLORIDE 0.9% 100 ML IV SCH (15:24)
[2022-02-23] MEDS: AZITHROMYCIN INJ 500 MG in SODIUM CHLORIDE 0.9% 250 ML IV SCH (16:04)
[2022-02-24] MEDS: ALBUTEROL/IPRATROPIUM 3 ML NEB RESP TX SCH ×4 (00:18→19:33)
[2022-02-24] MEDS: methylPREDNISolone SOD SUC 40 MG/1 ML VIAL IV SCH ×4 (02:40→20:35)
[2022-02-24 03:58] LABS: Arterial Base Excess iSTAT 12 MMOL/L (-2.5-2.5); Arterial Bicarbonate iSTAT 40.4 MMOL/L (20-26); Arterial O2 Saturation iSTAT 89 % (95-100); Arterial PCO2 iSTAT 71 MM HG (35-48); Arterial PO2 iSTAT 62 MM HG (80-95); Arterial Total CO2 iSTAT 42 MMO/L (23-27); Arterial pH iSTAT 7.364 (7.35-7.45)
[2022-02-24 06:54] LABS: Basophils % 0.2 % (0.0-0.8); Hematocrit 41.9 VOL% (35.7-47.0); Hemoglobin 12.7 GM/DL (12.0-16.0); Immature Granulocytes % 0.9 %; Immature Granulocytes Absolute 0.09 #; Lymphocytes # 0.4 10*3/uL (1.4-4.0); Lymphocytes % 4.3 % (21.3-54.2); Mean Corpuscular HGB Conc 30.3 GM/DL (32-36); Mean Corpuscular Volume 100.2 FL (87-102); Mean Platelet Volume 10.8 FL (9.6-12.0); Monocytes # 0.1 10*3/uL (0.11-0.8); Monocytes % 1.1 % (1.7-12.7); Neutrophils % 93.5 % (38.7-73.9); Platelet Count 238 T/CUMM (130-400); Red Blood Count 4.18 MC/CUMM (3.8-5.5); Red Cell Distribution Width 14.4 % (9.3-17.3); White Blood Count 9.9 T/CUMM (4-12)
[2022-02-24 06:57] LABS: Calcium 9.8 MG/DL (8.5-10.1); Osmolality,Calculated 296.3 MOS/KG (273-304)
[2022-02-24 07:17] LABS: Lymphocytes 2 % (20-55); Total Cells Counted 100
[2022-02-24 07:18] LABS: Platelet Estimate Normal
[2022-02-24] MEDS: APIXABAN 5 MG TABLET PO SCH ×2 (09:17→20:35)
[2022-02-24] MEDS: PANTOPRAZOLE 40 MG TABLET PO SCH (09:17)
[2022-02-24] MEDS: carvediloL 12.5 MG TABLET PO SCH ×2 (09:17→16:27)
[2022-02-24] MEDS: cefTRIAXone 1,000 MG in SODIUM CHLORIDE 0.9% 100 ML IV SCH (14:32)
[2022-02-24] MEDS: AZITHROMYCIN INJ 500 MG in SODIUM CHLORIDE 0.9% 250 ML IV SCH (14:33)
[2022-02-25] MEDS: ALBUTEROL/IPRATROPIUM 3 ML NEB RESP TX SCH ×4 (00:02→18:45)
[2022-02-25] MEDS: methylPREDNISolone SOD SUC 40 MG/1 ML VIAL IV SCH ×4 (02:58→20:06)
[2022-02-25 05:55] LABS: Basophils % 0.1 % (0.0-0.8); Hemoglobin 12.5 GM/DL (12.0-16.0); Immature Granulocytes % 0.8 %; Immature Granulocytes Absolute 0.06 #; Lymphocytes # 0.4 10*3/uL (1.4-4.0); Lymphocytes % 5.1 % (21.3-54.2); Mean Corpuscular HGB Conc 30.5 GM/DL (32-36); Mean Corpuscular Volume 99.3 FL (87-102); Mean Platelet Volume 10.6 FL (9.6-12.0); Monocytes # 0.1 10*3/uL (0.11-0.8); Monocytes % 1.3 % (1.7-12.7); Neutrophils % 92.7 % (38.7-73.9); Platelet Count 220 T/CUMM (130-400); Red Blood Count 4.13 MC/CUMM (3.8-5.5); Red Cell Distribution Width 14.3 % (9.3-17.3); White Blood Count 7.7 T/CUMM (4-12)
[2022-02-25 06:12] LABS: Calcium 9.6 MG/DL (8.5-10.1); Osmolality,Calculated 288.7 MOS/KG (273-304)
[2022-02-25 06:23] LABS: Lymphocytes 3 % (20-55); Platelet Estimate Adequate; Total Cells Counted 100
[2022-02-25] MEDS: APIXABAN 5 MG TABLET PO SCH ×2 (08:42→20:06)
[2022-02-25] MEDS: PANTOPRAZOLE 40 MG TABLET PO SCH (08:42)
[2022-02-25] MEDS: carvediloL 12.5 MG TABLET PO SCH ×2 (08:42→16:30)
[2022-02-25] MEDS: cefTRIAXone 1,000 MG in SODIUM CHLORIDE 0.9% 100 ML IV SCH (14:45)
[2022-02-25] MEDS: AZITHROMYCIN INJ 500 MG in SODIUM CHLORIDE 0.9% 250 ML IV SCH (15:19)
[2022-02-26] MEDS: ALBUTEROL/IPRATROPIUM 3 ML NEB RESP TX SCH ×4 (00:40→19:12)
[2022-02-26] MEDS: methylPREDNISolone SOD SUC 40 MG/1 ML VIAL IV SCH ×4 (03:24→20:53)
[2022-02-26 05:46] LABS: Basophils % 0.1 % (0.0-0.8); Hemoglobin 13.1 GM/DL (12.0-16.0); Immature Granulocytes % 1.2 %; Immature Granulocytes Absolute 0.08 #; Lymphocytes # 0.3 10*3/uL (1.4-4.0); Lymphocytes % 3.7 % (21.3-54.2); Mean Corpuscular HGB Conc 30.5 GM/DL (32-36); Mean Corpuscular Volume 99.1 FL (87-102); Mean Platelet Volume 10.4 FL (9.6-12.0); Monocytes # 0.2 10*3/uL (0.11-0.8); Monocytes % 2.4 % (1.7-12.7); Neutrophils % 92.6 % (38.7-73.9); Platelet Count 227 T/CUMM (130-400); Red Blood Count 4.34 MC/CUMM (3.8-5.5); Red Cell Distribution Width 14.3 % (9.3-17.3); White Blood Count 6.8 T/CUMM (4-12)
[2022-02-26 05:47] LABS: Calcium 9.6 MG/DL (8.5-10.1); Osmolality,Calculated 292.4 MOS/KG (273-304); Potassium 5.2 MMOL/L (3.5-5.1)
[2022-02-26 05:52] LABS: Lymphocytes 4 % (20-55); Platelet Estimate Adequate; Total Cells Counted 100
[2022-02-26] MEDS ORDERED: PROMETHAZINE 25 MG/1 ML VIAL IM ONE (07:30)
[2022-02-26] MEDS ORDERED: MEPERIDINE 50 MG/1 ML VIAL IM ONE (07:30)
[2022-02-26] MEDS ORDERED: SODIUM POLYSTYRENE SULFATE 15 GM/60 ML BOTTLE PO ONE (07:36)
[2022-02-26] MEDS ORDERED: LIDOCAINE 1% 20 ML VIAL MISC INJ ONE (08:00)
[2022-02-26] MEDS ORDERED: LIDOCAINE 2% VISCOUS 100 ML BOTTLE SWISH/SPIT ONE (08:00)
[2022-02-26] MEDS ORDERED: MIDAZOLAM 2 MG/2 ML VIAL IV ONE (08:00)
[2022-02-26] MEDS ORDERED: LIDOCAINE 2% 20 ML VIAL RESP TX ONE (08:00)
[2022-02-26] MEDS: PANTOPRAZOLE 40 MG TABLET PO SCH (10:58)
[2022-02-26] MEDS: carvediloL 12.5 MG TABLET PO SCH ×2 (10:58→16:49)
[2022-02-26] MEDS: APIXABAN 5 MG TABLET PO SCH ×2 (11:00→20:51)
[2022-02-26] MEDS: cefTRIAXone 1,000 MG in SODIUM CHLORIDE 0.9% 100 ML IV SCH (16:42)
[2022-02-27] MEDS: ALBUTEROL/IPRATROPIUM 3 ML NEB RESP TX SCH ×2 (00:05→07:07)
[2022-02-27] MEDS: methylPREDNISolone SOD SUC 40 MG/1 ML VIAL IV SCH ×2 (02:26→08:04)
[2022-02-27 05:56] LABS: Basophils % 0.2 % (0.0-0.8); Hematocrit 43.9 VOL% (35.7-47.0); Hemoglobin 13.5 GM/DL (12.0-16.0); Immature Granulocytes % 1.1 %; Immature Granulocytes Absolute 0.09 #; Lymphocytes # 0.2 10*3/uL (1.4-4.0); Lymphocytes % 2.4 % (21.3-54.2); Mean Corpuscular HGB Conc 30.8 GM/DL (32-36); Mean Corpuscular Volume 97.3 FL (87-102); Mean Platelet Volume 10.6 FL (9.6-12.0); Monocytes # 0.2 10*3/uL (0.11-0.8); Monocytes % 2.2 % (1.7-12.7); Neutrophils % 94.1 % (38.7-73.9); Platelet Count 240 T/CUMM (130-400); Red Blood Count 4.51 MC/CUMM (3.8-5.5); Red Cell Distribution Width 14.5 % (9.3-17.3); White Blood Count 8.5 T/CUMM (4-12)
[2022-02-27 06:22] LABS: Calcium 9.5 MG/DL (8.5-10.1); Osmolality,Calculated 294.1 MOS/KG (273-304); Potassium 4.3 MMOL/L (3.5-5.1)
[2022-02-27 06:25] LABS: Lymphocytes 1 % (20-55); Total Cells Counted 100
[2022-02-27 06:26] LABS: Hypochromia Slight; Macrocytosis Slight
[2022-02-27] MEDS: carvediloL 12.5 MG TABLET PO SCH (08:04)
[2022-02-27] MEDS: APIXABAN 5 MG TABLET PO SCH (08:04)
[2022-02-27] MEDS: PANTOPRAZOLE 40 MG TABLET PO SCH (08:04)
[2022-02-27 08:28] VITALS: BP 160/63
[2022-02-27] MEDS ORDERED: CEFUROXIME 500 MG TABLET PO SCH (21:00)
[2022-02-28] MEDS ORDERED: predniSONE 20 MG TABLET PO SCH (09:00)
== END 2022-02-27 12:24 | disposition home or self-care (01) | DRG 190 ==
LOC: EDUNIT# → EDBD → N.ED 12:37 → SUATTDRO 15:15 → N.EDINP 15:15 → N.5E 17:18
PROVIDERS: ADMIT Internal Medicine; ATTEND Internal Medicine